=== PATIENT | female | born 1955 ===

== ENCOUNTER 2020-06-25 13:58 | Observation (INO) ==
[2020-06-25 15:58] LABS: ABS Basophils 0.1 10^3/ul (0-0.2); ABS Eosinophils 0.5 10^3/ul (0-0.6); ABS Lymphocytes 3.7 10^3/ul (1.0-4.8); ABS Monocytes 0.6 10^3/ul (0-0.8); ABS Neutrophils 5.2 10^3/ul (1.5-7.7); Eosinophil % 4.8 %; Hematocrit 39 % (35-47); Hemoglobin 13.1 g/dL (12.0-16.0); Lymphocyte % 36.9 %; Mean Corpuscular HGB Conc 34 g/dL (31-36); Mean Corpuscular Hemoglobin 31 pg (27-31); Mean Corpuscular Volume 91 fL (80-97); Mean Platelet Volume 7.6 fL (7.4-10.4); Platelet Count 281 10^3/uL (150-450); Red Blood Count 4.24 10^6 /uL (3.70-4.87); Red Cell Distribution Width 14 % (10-15); White Blood Count 10.1 10^3/uL (3.5-10.8)
[2020-06-25 16:20] LABS: Potassium 3.7 mmol/L (3.5-5.0)
[2020-06-25 16:21] LABS: Albumin/Globulin Ratio 1.5 (1-3); BUN/Creatinine Ratio 25.9 (8-20); Calcium 10.4 mg/dL (8.6-10.3); EGFR African American 81.5 (>60); EGFR Non-African American 67.3 (>60); Globulin 2.6 g/dL (2-4); Total Bilirubin 0.3 mg/dL (0.2-1.0); Total Protein 6.6 g/dL (6.4-8.9); Troponin I 0.01 ng/mL (<0.03)
[2020-06-25] MEDS ORDERED: Iohexol 350 (CONTRAST) 500 ML MDV IV ONE (16:56)
[2020-06-25] MEDS ORDERED: Labetalol IV 5 MG/ML 20 ml VIAL IV PUSH ONE (17:54)
[2020-06-25] MEDS ORDERED: Enoxaparin 40 MG/0.4 ML SYR SUBCUT SCH (22:00)
[2020-06-25] MEDS ORDERED: ASA-APAP-CAFFEINE ES (NF) TAB PO SCH (23:45)
[2020-06-26] MEDS: ASA-APAP-CAFFEINE ES (NF) TAB PO PRN ×2 (08:30→08:32)
[2020-06-26 08:46] LABS: ABS Basophils 0.1 10^3/ul (0-0.2); ABS Eosinophils 0.4 10^3/ul (0-0.6); ABS Monocytes 0.5 10^3/ul (0-0.8); ABS Neutrophils 5.4 10^3/ul (1.5-7.7); Eosinophil % 3.9 %; Hematocrit 41 % (35-47); Lymphocyte % 32.3 %; Mean Corpuscular HGB Conc 34 g/dL (31-36); Mean Corpuscular Hemoglobin 31 pg (27-31); Mean Corpuscular Volume 91 fL (80-97); Mean Platelet Volume 7.8 fL (7.4-10.4); Platelet Count 289 10^3/uL (150-450); Red Blood Count 4.54 10^6 /uL (3.70-4.87); Red Cell Distribution Width 14 % (10-15); White Blood Count 9.3 10^3/uL (3.5-10.8)
[2020-06-26] MEDS ORDERED: POTASSIUM GLUCONATE 600 MG PO SCH (09:00)
[2020-06-26 09:06] LABS: Albumin 4.2 g/dL (3.2-5.2); Albumin/Globulin Ratio 1.7 (1-3); BUN/Creatinine Ratio 18.8 (8-20); Calcium 9.8 mg/dL (8.6-10.3); EGFR African American 81.5 (>60); EGFR Non-African American 67.3 (>60); Globulin 2.5 g/dL (2-4); Total Bilirubin 0.5 mg/dL (0.2-1.0); Total Protein 6.7 g/dL (6.4-8.9)
[2020-06-26] MEDS ORDERED: Dextran 70/Hypromellose Tears Eye Drops 15 ml BTL (for Artificials Tears) BOTH EYES PRN (09:28)
[2020-06-26 20:41] VITALS: BP 135/68
== END 2020-06-26 19:05 | disposition home or self-care (01) ==
LOC: ED 13:58 → MEDTELE 13:58
PROVIDERS: ADMIT Internal Medicine; ATTEND Internal Medicine